=== PATIENT | male | born 1955 | race Caucasian/White ===

== ENCOUNTER 2017-05-22 19:02 | Observation (INO) | payer OTHER, MEDICARE ==
[~2017-05-22] VITALS: Ht 170.2 cm; Wt 111.0 kg
[~2017-05-22 19:02] MED LIST: ASPI-516 CHEW; ATOR80TA45 PO; CYMB30CA PO; FLUO20CA12 PO; FOLI400T PO; GABA600T PO; LISI10TA3 PO; METF500T PO; METO25TA3 PO; OMEP20TA93 PO; PERC5TAB12 PO
[2017-05-22] MEDS ORDERED: ENALAPRILAT 1.25 MG/ML VIAL IV PUSH PRN (19:30)
[2017-05-22] MEDS ORDERED: ASPIRIN 325 MG TAB PO ONE (19:30)
[2017-05-22] MEDS ORDERED: ATORVASTATIN 40 MG TAB PO SCH (21:00)
[2017-05-23 03:24] VITALS: BP 123/69; PULSE 90; RESP 16; TEMP 97.9; O2SAT 98
[2017-05-23] MEDS: SODIUM CHLOR 0.45% 1000 ML INJ 1,000 ML IV SCH ×3 (04:20→20:44)
[2017-05-23 08:00] VITALS: BP 132/72; PULSE 96; RESP 18; TEMP 96.9; O2SAT 96
[2017-05-23 12:00] VITALS: BP 125/67; PULSE 98; RESP 18; TEMP 96.7; O2SAT 97
--- NOTE | 2017-05-23 12:31 | ECHRPT ---
Indication: Cva/tia CONCLUSIONS The left ventricular function is normal with an estimated ejection fraction of 60-65% Mild concentric left ventricular hypertrophy. Normal left ventricular size. No regional wall motion abnormalities are present. Trace mitral valve regurgitation. There is trace tricuspid valve regurgitation The pulmonary valve is not well visualized. BP: / HR: Rhythm: MEASUREMENTS (Male / Female) Normal Values Technical Quality:Technically difficult study 2D ECHO LV Diastolic Diameter PLAX 4.4 cm 4.2 - 5.9 / 3.9 - 5.3 cm LV Systolic Diameter PLAX 3.2 cm IVS Diastolic Thickness 1.3 cm 0.6 - 1.0 / 0.6 - 0.9 cm LVPW Diastolic Thickness 1.1 cm 0.6 - 1.0 / 0.6 - 0.9 cm LV Relative Wall Thickness 0.5 RV Internal Dim ED PLAX 2.9 cm M-MODE Aortic Root Diameter MM 3.4 cm LA Systolic Diameter MM 3.3 cm LA Ao Ratio MM 1.0 AV Cusp Separation MM 2.1 cm DOPPLER LV E' Lateral Velocity 7.8 cm/s LV E' Septal Velocity 7.4 cm/s FINDINGS LEFT VENTRICLE The left ventricular systolic function is normal with an estimated ejection fraction in the range of 60-65%. Mild concentric left ventricular hypertrophy. Normal left ventricular size. No regional wall motion abnormalities are present. RIGHT VENTRICLE Normal right ventricular size and systolic function. LEFT ATRIUM The left atrial size is normal. RIGHT ATRIUM The right atrial size is normal. ATRIAL SEPTUM Normal atrial septal thickness without atrial level shunting by limited color doppler interrogation. AORTA The aortic root and proximal ascending aorta are normal in size on limited imaging. MITRAL VALVE Structurally normal mitral valve. Trace mitral valve regurgitation. AORTIC VALVE Trileaflet aortic valve. No aortic valve stenosis or regurgitation. TRICUSPID VALVE Structurally normal tricuspid valve. There is trace tricuspid valve regurgitation PULMONARY VALVE The pulmonary valve is not well visualized. VESSELS The inferior vena cava is normal in size. PERICARDIUM No pericardial effusion. Daniel Arnett MD (Electronically Signed) Final Date:23 May 2017 12:31
[2017-05-23] MEDS ORDERED: DEXTROSE 50% IN WATER 50 ML VIAL(D50) IV PUSH PRN (13:15)
[2017-05-23] MEDS ORDERED: SODIUM CHLORIDE 0.9% FLUSH 10 ML FLUSH IV FLUSH PRN (13:15)
[2017-05-23] MEDS ORDERED: GLUCAGON 1 MG/ML VIAL OTHER PRN (13:15)
[2017-05-23] MEDS ORDERED: ASPIRIN 81 MG CHEW TAB CHEW SCH (13:15)
[2017-05-23 13:34] LABS: HDL CHOLESTEROL 29.2 MG/DL (40.0-60.0)
[2017-05-23] MEDS ORDERED: ACETAMINOPHEN 325 MG TAB PO PRN (14:00)
[2017-05-23] MEDS ORDERED: TEMAZEPAM 15 MG CAP PO PRN (14:00)
[2017-05-23] MEDS ORDERED: CALCIUM CARBONATE 500 MG CHEWABLE TAB CHEW PRN (14:00)
[2017-05-23] MEDS ORDERED: DOCUSATE SODIUM 100 MG CAP PO PRN (14:00)
[2017-05-23] MEDS ORDERED: MAGNESIUM HYDROXIDE SUSP 30 ML CUP PO PRN (14:00)
[2017-05-23] MEDS ORDERED: ONDANSETRON HCL 4 MG/2 ML VIAL IV PUSH PRN (14:00)
--- NOTE | 2017-05-23 14:12 | HHI.HP ---
[facility] Admission Diagnosis Syncope, worsening weakness of the left upper lower extremity Diagnoses: (1) Syncope Diagnosis: Principal (2) History of CVA (cerebrovascular accident) Diagnosis: Secondary (3) Left-sided weakness Diagnosis: Principal Chief Complaint: Loss of consciousness with worsening left-sided weakness Travel History International Travel<30 Days: No Contact w/Intl Traveler <30 Da: No History of Present Illness 7 year-old male with known history of CVA with left-sided residual weakness, hypertension, hyperlipidemia, possible history of myocardial infarction, obstructive sleep apnea, gastroesophageal reflux, who presented to hospital because of a syncopal episode. Patient states that approximately 3 PM yesterday afternoon he was helping his do the dishes. 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 It was indicated that his son was behind him and caught him and lowered to the ground. Patient had an episode of loss of consciousness, without any head injury. Patient does not know how long he was out for. He denies any loss of bowel or bladder control, no tongue biting, he states that he was mildly confused but no significant postictal state. Patient indicates that since then he has been having worsening numbness in his left lower extremity where it is almost completely numb. He has had worsening pain in his left upper extremity. He also indicated that his son thought that he had worsened speech with possible slurred speech when he was more alert. Patient does have history of stroke with left-sided residuals. However patient states that the symptoms are worse than they were prior to his syncopal episode. After persuasion by his the patient reluctantly came to the hospital for evaluation. Patient had CT scan done of the brain that did not indicate any acute abnormality in the patient was recommended admission for further evaluation and management. Review of Systems Musculoskeletal: COMPLAINS OF: Back pain Neurologic: COMPLAINS OF: Localized weakness, Speech Problems Except as stated in HPI: all other systems reviewed are Neg Past Family Social History Past Medical History History of CVA with left-sided weakness Hypertension Hyperlipidemia Possible history of myocardial infarction Coronary artery disease History of symptomatic bradycardia requiring pacemaker Diabetes Gastroesophageal reflux Obstructive sleep apnea Past Surgical History Bilateral inguinal hernia repair Cholecystectomy Lumbar spine surgery Permanent pacemaker placement Cardiac catheterization Reported Medications Reported Meds & Active Scripts Active Reported Folic Acid 0.4 Mg Tab 1 Mg PO DAILY Lisinopril 10 Mg Tab 10 Mg PO DAILY Aspirin 81 Mg Chew 81 Mg CHEW DAILY Fluoxetine (Fluoxetine HCl) 20 Mg Capsule 20 Mg PO DAILY Metoprolol Tartrate 25 Mg Tab 25 Mg PO BID Cymbalta DR (Duloxetine HCl) 30 Mg Capdr 30 Mg PO DAILY Omeprazole 20 Mg Tab 20 Mg PO DAILY Metformin (Metformin HCl) 500 Mg Tab 500 Mg PO BIDPC With meals Atorvastatin (Atorvastatin Calcium) 80 Mg Tab 80 Mg PO HS Gabapentin 600 Mg Tab 600 Mg PO TID Percocet (Oxycodone-Acetaminophen) 5-325 mg Tab 1 Tab PO TID PRN Allergies: Coded Allergies: MRI PRECAUTION (Verified Allergy, Severe, 04/30/17) oseltamivir (Verified Allergy, Unknown, 05/22/17) polyethylene glycol (Verified Allergy, Unknown, 05/22/17) polyethylene glycol 3350 (Verified Allergy, Unknown, 05/22/17) potassium chloride (Verified Allergy, Unknown, 05/22/17) sodium (Verified Allergy, Unknown, 05/22/17) sodium bicarbonate (Verified Allergy, Unknown, 05/22/17) sodium chloride (Verified Allergy, Unknown, 05/22/17) sodium sulfate (Verified Allergy, Unknown, 05/22/17) Uncoded Allergies: BARIUM (Allergy, Unknown, 05/22/17) Family History Reviewed and patient does not know his family history Social History Patient does continues smoke one pack a cigarettes a day since he was 15 years old. Does use alcohol rarely. Denies any illicit drugs Physical Exam Vital Signs Vital Signs Date Time Temp Pulse Resp B/P (MAP) Pulse Ox O2 Delivery O2 Flow Rate FiO2 05/23/17 12:00 96.7 98 18 125/67 (86) 97 05/23/17 08:00 96.9 96 18 132/72 (92) 96 05/23/17 03:24 97.9 90 16 123/69 (87) 98 Physical Exam GENERAL: Well-developed, well-nourished, in no acute distress. alert and orientated HEENT: Head is normocephalic without any lesions or masses noted. Facial features are symmetric. Eyes: Pupils equal round reactive to light. Extraocular muscles are intact. Conjunctivae were clear. Oropharyngeal: Pharynx without any erythema edema. Tongue is midline without deviation. Buccal mucosa is moist without any masses or lesions NECK: Supple without any masses. Trachea midline no deviation. No JVD, no bruits are appreciated CARDIAC: Regular rhythm, regular rate. S1/S2 are heard. No murmurs gallops or rubs. LUNGS: Clear to auscultation bilaterally. No wheeze, rhonchi or rales. No use of accessory muscles on inspiration or expiration. ABDOMEN: Soft, nontender. Nondistended. Bowel sounds heard in all 4 quadrants. No organomegaly or masses. Negative rebound, negative guarding EXTREMITIES: No edema, pulses are equal bilaterally. No cyanosis or clubbing NEUROLOGY: Mood and affect appear appropriate. Cranial nerves II through XII grossly intact. Patient with 3/5 muscle strength in the left upper extremity, patient states he cannot lift his left lower extremity, however when I checked his plantar reflex he is able to lift his leg up off the bed spontaneously. Laboratory Laboratory Tests Test 05/22/17 18:04 05/23/17 02:05 Triglycerides Level 228 Cholesterol Level 141 LDL Cholesterol 66 HDL Cholesterol 29.2 Cholesterol/HDL Ratio 4.82 Caprini VTE Risk Assessment Caprini VTE Risk Assessment: Mod/High Risk (score >= 2) Caprini Risk Assessment Model Point Value = 1 Point Value = 2 Point Value = 3 Point Value = 5 Age 41-60 Minor surgery BMI > 25 kg/m2 Swollen legs Varicose veins or History of unexplained or recurrent spontaneous Oral contraceptives or hormone replacement Sepsis (< 1 month) Serious lung disease, including pneumonia (< 1 month) Abnormal pulmonary function Acute myocardial infarction Congestive heart failure (< 1 month) History of inflammatory bowel disease Medical patient at bed rest Age 61-74 Arthroscopic surgery Major open surgery (> 45 min) Laparoscopic surgery (> 45 min) Malignancy Confined to bed (> 72 hours) Immobilizing plaster cast Central venous access Age >= 75 History of VTE Family history of VTE Factor V Leiden Prothrombin [id number] Lupus anticoagulant Anticardiolipin antibodies Elevated serum homocysteine Heparin-induced thrombocytopenia Other congenital or acquired thrombophilia Stroke (< 1 month) Elective arthroplasty Hip, pelvis, or leg fracture Acute spinal cord injury (< 1 month) Prophylaxis Regimen Total Risk Factor Score Risk Level Prophylaxis Regimen 0-1 Low Early ambulation 2 Moderate Order ONE of the following: *Sequential Compression Device (SCD) *Heparin 5000 units SQ BID 3-4 Higher Order ONE of the following medications: *Heparin 5000 units SQ TID *Enoxaparin/Lovenox 40 mg SQ daily (WT < 150 kg, CrCl > 30 mL/min) *Enoxaparin/Lovenox 30 mg SQ daily (WT < 150 kg, CrCl > 10-29 mL/min) *Enoxaparin/Lovenox 30 mg SQ BID (WT < 150 kg, CrCl > 30 mL/min) AND/OR *Sequential Compression Device (SCD) 5 or more Highest Order ONE of the following medications: *Heparin 5000 units SQ TID (Preferred with Epidurals) *Enoxaparin/Lovenox 40 mg SQ daily (WT < 150 kg, CrCl > 30 mL/min) *Enoxaparin/Lovenox 30 mg SQ daily (WT < 150 kg, CrCl > 10-29 mL/min) *Enoxaparin/Lovenox 30 mg SQ BID (WT < 150 kg, CrCl > 30 mL/min) AND *Sequential Compression Device (SCD) Assessment and Plan Assessment and Plan Acute syncopal episode worsening left-sided weakness and numbness in a patient with recurrent CVA/TIA Patient with increased risk factors for recurrent stroke, will need to do full neurological workup to evaluate CT scan initially is unremarkable. Patient has had MRI precautions will need to repeat CT tomorrow to evaluate for evolving CVA We'll check echocardiogram, carotid ultrasound, EEG, orthostatic vitals, CTA of the brain Further lab studies to include B12, folate, TSH, RPR, sedimentation rate, lipid panel Will increase to full dose aspirin 325 mg daily and add Plavix 75 mg daily Obtain PT/OT/ST evaluations Interrogate pacemaker Consult neurology for further recommendations Hypertension, hyperlipidemia, coronary artery disease, history of symptomatic bradycardia status post pacemaker placement Continue home medications Diabetes Accu-Cheks with sliding scale insulin check hemoglobin A1c Diabetic diet Chronic back pain Continue home pain medication Chronic tobacco use Patient counseled on cessation DVT prevention sequential compression devices Physician Certification 2 Midnight Certification Type: Admission for Inpatient Services Order for Inpatient Services The services are ordered in accordance with Medicare regulations or non- Medicare payer requirements, as applicable. In the case of services not specified as inpatient-only, they are appropriately provided as inpatient services in accordance with the 2-midnight benchmark. Estimated LOS (days): 2 days is the estimated time the patient will need to remain in the hospital, assuming treatment plan goals are met and no additional complications. Post-Hospital Plan: Not yet determined Problem Qualifiers (1) Syncope: Qualified Codes: R55 - Syncope and collapse Josh Santamaria May 23, 2017 14:12
[2017-05-23] MEDS: CLOPIDOGREL 75 MG TAB PO SCH (14:16)
[2017-05-23] MEDS: oxyCODONE/ACETAMINOPHEN 5 MG/325 MG TAB PO PRN ×2 (14:17→20:42)
[2017-05-23] MEDS: ASPIRIN EC 325 MG TABEC PO SCH (14:17)
[2017-05-23 16:00] VITALS: BP 122/71; PULSE 108; RESP 18; TEMP 97.4; O2SAT 95
[2017-05-23] MEDS ORDERED: IOHEXOL 350 MG/ML 10 ML VIAL (for RAD DIAG) IVCONTRAST ONE (16:01)
--- NOTE | 2017-05-23 16:31 | RADRPT ---
EXAM DATE/TIME: 05/23/2017 14:58 [facility] COMPARISON: No previous studies available for comparison. INDICATIONS : Cerebrovascular accident. MEDICAL HISTORY : Dementia. Myocardial infarction. Chronic obstructive pulmonary disease. SURGICAL HISTORY : Spinal surgery. Pacemaker. Cholecystectomy. Hernia repair. ENCOUNTER: Subsequent ACUITY: 1 day PAIN SCORE: 10/10 LOCATION: Bilateral neck PEAK SYSTOLIC VELOCITIES (cm/sec): ICA/CCA RATIO: Right: 0.7 Left: 0.9 ICA: Right: 82 Left: 85 CCA: Right: 114 Left: 98 ECA: Right: 167 Left: 84 VERTEBRAL: Right: 72 antegrade Left: 72 antegrade Elevated flow velocities and ICA/CCA ratios have been found to correlate with increased degrees of vessel stenosis, calculated as percentage of diameter relative to a normal segment of distal ICA/CCA FINDINGS: RIGHT CAROTID: No significant stenosis is visualized. There is mild calcified plaque in the carotid bulb. The wavef orms are within normal limits. LEFT CAROTID: No significant stenosis is visualized. There is mild noncalcified plaque in the coronal. The wavefor ms are within normal limits. VERTEBRAL ARTERIES: Antegrade flow is seen in both vertebral arteries. MISCELLANEOUS: None. CONCLUSION: 1. Mild atherosclerotic disease within the internal carotid arteries bilaterally. However, no signifi cant stenosis is present within either internal carotid artery (less than 50% stenosis). 2. There is antegrade flow within both vertebral arteries. Rajesh Campbell MD on May 23, 2017 at 16:27 Board Certified Radiologist. This report was verified electronically.
[2017-05-23] MEDS: INSULIN ASPART SUPPLEMENTAL SCALE SQ SCH ×2 (17:00→21:17)
--- NOTE | 2017-05-23 17:34 | RADRPT ---
EXAM DATE/TIME: 05/23/2017 15:49 [facility] COMPARISON: No previous studies available for comparison. INDICATIONS : Syncopal episode yesterday. Evaluate for cerebrovascular accident. IV CONTRAST: 75 cc Omnipaque 350 (iohexol) IV RADIATION DOSE: 41.71 CTDIvol (mGy) MEDICAL HISTORY : Cerebrovascular disease. Myocardial infarction. Chronic obstructive pulmonary disease.Diabetes. SURGICAL HISTORY : Pacemaker. Cholecystectomy. ENCOUNTER: Initial ACUITY: 1 day PAIN SCALE: 9/10 LOCATION: cranial TECHNIQUE: Volumetric scanning was performed using a multi-row detector CT scanner. The data was post processed with a variety of visualization algorithms including full volume maximum intensity projection, multi -planar sliding thin slab reformation, curved planar reformation, and surface rendering techniques. Using automated exposure control and adjustment of the mA and/or kV according to patient size, radiat ion dose was kept as low as reasonably achievable to obtain optimal diagnostic quality images. DICO M format image data is available electronically for review and comparison. FINDINGS: Anterior circulation: Distal intracranial internal carotid arteries are patent with flow extending to the middle and anteri or cerebral arteries. There is no evidence for aneurysm, vessel truncation or stenosis, and no eviden ce for vascular malformation. Posterior circulation: Symmetric distal vertebral arteries with flow extending to basilar artery. Patent posterior communic ating arteries. origin of the right CHAPERONE. There is no evidence for aneurysm, vessel truncation o r stenosis, and no evidence for vascular malformation. CONCLUSION: 1. Unremarkable head CTA examination. Specifically, no evidence for large vessel occlusion or aneurys mSneha Hollis MD on May 23, 2017 at 17:27 Board Certified Radiologist. This report was verified electronically.
[2017-05-23] MEDS ORDERED: GABAPENTIN 300 MG CAP PO SCH (18:00)
[2017-05-23 20:00] VITALS: BP 106/65; PULSE 95; RESP 18; TEMP 97.1; O2SAT 97
[2017-05-23] MEDS: METOPROLOL TARTRATE 25 MG TAB PO SCH (20:42)
[2017-05-23] MEDS: SODIUM CHLORIDE 0.9% FLUSH 10 ML FLUSH IV FLUSH SCH (20:42)
[2017-05-23] MEDS ORDERED: ATORVASTATIN 40 MG TAB PO SCH (21:00)
--- NOTE | 2017-05-23 22:02 | MB ---
cc: ISRAEL RHODES MD DATE OF CONSULTATION 05/23/17 HISTORY OF PRESENT ILLNESS A 61-year-old right-handed man with a history of hypertension, diabetes, hypercholesterolemia, COPD, low back pain, low back surgery, pacemaker. [facility] to [facility]. He tells me he had a stroke in 2010, left-sided weakness since that time. He uses a cane. He takes a baby aspirin a day. 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 The next thing he knows he was in the chair, so it sounds like he may have passed out briefly. He feels like his left arm is tingling on it and was somewhat weaker than it had been since prior after the stroke. He has a lot of low back pain now. SOCIAL HISTORY He is a smoker and I have asked him to quit. He is not a drinker, lives with his . FAMILY HISTORY Positive for cancer in both his son and his . Negative for seizure or stroke. Evidently, he has had numerous syncopal episodes related to hypoglycemia in the past. He has never woken up, wet the bed or bit his tongue. No odd smells, taste or victor hugo vu. He did not wet himself or bite his tongue this time. ALLERGIES POLYETHYLENE GLYCOL OSELTAMIVIR BARIUM MEDICATIONS 1. Folic acid. 2. Lisinopril 3. Aspirin 81 4. Fluoxetine 5. Metoprolol 6. Cymbalta 30 mg a day. 7. Omeprazole. 8. Metformin. 9. Atorvastatin 10. Gabapentin 600 t.i.d. 11. Percocet p.r.n. He was on Morphine at one-time. He says he had them take him off. NEUROLOGIC EXAMINATION Afebrile, 108, 18, 122/71. NECK: There were no carotid bruits. HEART: Regular rhythm. I did not detect a murmur. He is significantly obese. Pupils are equal. Visual mancera are full. Extraocular movements intact without nystagmus. Face symmetric with normal sensation. Tongue was midline. There was no drift. He had normal strength in right upper and lower extremities. In the left upper extremity, he has some giveaway weakness but best testing is about a 4+ to 5-/5. Fast fingers movements are a little bit slower on the left than the right but his effort is not so great. Left iliopsoas and tibialis anterior with normal best testing. Toes are downgoing bilaterally. DTRs are trace to absent throughout. Pinprick was diminished on the left leg compared to the right, but intact on the left arm compared to the right and intact on the face bilaterally. He is not ataxic on [id number]. Speech is fluent. He is not aphasic. LABORATORY DATA CBC was unremarkable. Sed rate 47. RPR has been negative in the past. Antiphospholipid antibody has been negative in the past. Urine drug screen is negative in 2011. UA showed 1000 glucose otherwise negative. Coag screen was normal back in 2011. Troponin is negative. LDL cholesterol 66, folate, B12, thyroid all normal. BMP is normal except for glucose of 183. IMAGING STUDIES CTA scan of the brain was normal. Carotid ultrasound negative. CTA of the head unremarkable, no occlusions, CT of the brain as noted was normal and I reviewed those films. Neck CTA done in 2011 which was normal. EEG done in 2011 normal. His echocardiogram here was normal. PAST MEDICAL HISTORY Possible seizure in the past with jerking activity. Some history of seizures, possibly when Dr. Warner saw him back in 2010, although the patient to me denied any seizures. IMPRESSION I think he looks overall well neurologically. He has some residual left-sided weakness, but I think it is unlikely he had a new stroke here. He is mainly complaining of sudden onset of back pain and now back pain at this time. We could increase his gabapentin or increase his Cymbalta, certainly he could take 30 b.i.d. of the Cymbalta and go up to 60 b.i.d. if it would be okay and considered switching him off his other antidepressant. We can double his gabapentin to 1200 t.i.d. I would check some orthostatics on him. We can check an EEG. I would recommend having cardiology see him for the syncope and to also interrogate his pacemaker and see if there is any major arrhythmia there. Start him on Plavix and in three days, I would stop the aspirin. Plavix has been started here and I think he would be okay for discharge when cleared by cardiology unless there is some A fib. found on his pacemaker. I note he has been in sinus rhythm here so far. Follow up his EEGx. MD SILAS Irby/ /7:14 PM /9:37 PM
[2017-05-23 22:14] LABS: HEMOGLOBIN A1a 1.2 %; HEMOGLOBIN A1b 1.8 %; HEMOGLOBIN Ao 78.2 %; HEMOGLOBIN F 1.7 %; HEMOGLOBIN LA1C 3.1 %; HEMOGLOBIN P3 6.5 %
[2017-05-23 23:00] VITALS: PULSE 85
[2017-05-24] VITALS: BP 124/74; PULSE 82; RESP 18; TEMP 96.6; O2SAT 97
[2017-05-24 04:00] VITALS: BP 133/77; PULSE 81; RESP 18; TEMP 96.3; O2SAT 96
--- NOTE | 2017-05-24 06:38 | MB ---
cc: RYAN ISAAC M.D. DATE OF CONSULTATION May 24, 2017 HISTORY OF PRESENT ILLNESS The patient is a pleasant 61-year-old white man I am seeing for syncope. I have reviewed records and have spoken with the patient. The patient is followed through the [facility]. He has a [employer] pacemaker per his history which he thinks was for a slow heart rate. He denies any definite history of coronary disease to me. He does have residual left-sided weakness from prior CVA. His past medical history includes hypertension, hyperlipidemia and sleep apnea. The patient was admitted because of syncope. 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 His son caught him and lowered him to the ground. Apparently it was unclear whether this was truly a syncopal episode or loss of balance. The patient has moderate stable dyspnea on exertion but no chest pain, palpitations or other cardiac complaints. PAST MEDICAL HISTORY 1. [employer] pacemaker. 2. Hypertension. 3. Hyperlipidemia. 4. CVA with left-sided weakness. 5. Diabetes. 6. Sleep apnea. 7. GE reflux disease. PAST SURGICAL HISTORY 1. Bilateral inguinal hernia repair. 2. Cholecystectomy. 3. Lumbar spine surgery. ALLERGIES MRI PRECAUTIONS. POLYETHYLENE GLYCOL. BARIUM. SOCIAL HISTORY He is and smokes one pack per day and does not drink. FAMILY HISTORY Unremarkable. REVIEW OF SYSTEMS Only remarkable for occasional joint pain along with his left-sided weakness and dyspnea. His echocardiogram showed normal LV function with left ventricular hypertrophy and trace mitral and tricuspid regurgitation. EKG shows sinus rhythm and is normal. On telemetry he was in sinus rhythm but did have a four-beat ventricular run. IMAGING STUDIES Head CT negative. CT angiogram unremarkable. Carotid ultrasound with mild disease. Chest x-ray was not done. MEDICATION LIST Reviewed. PHYSICAL EXAMINATION GENERAL: On exam he is alert and oriented x3 but only a fair historian. He is overweight. Afebrile. VITAL SIGNS: Stable. HEENT: There is no xanthelasma and oral pharyngeal mucosa normal. CHEST: With decreased breath sounds but clear. JVD normal. S1-S2, no murmurs or gallops. ABDOMEN: Obese but benign. EXTREMITIES: No cyanosis, clubbing or edema. Pulses deep with 1+ throughout and without bruits. NEUROLOGIC: He is not ambulated. PROBLEMS 1. Possible syncope - This is unclear as it could have been due to his weakness and imbalance when he stood up. 2. Prior pacemaker placement. 3. Four-beat wide complex run on telemetry. 4. Hypertension. 5. Diabetes. 6. Hyperlipidemia. RECOMMENDATIONS 1. No driving or heavy machinery at the present time. 2. I have spoken to my office who will call the [employer] rep and have the pacemaker interrogated. We would try to correlate if he had an arrhythmia at that time. 3. Low cholesterol/salt/diabetic diet with weight loss and continuation of present medical regimen. 4. Will order a pharmacologic SPECT nuclear particularly because of the four-beat wide complex run. If there is no definite correlation with arrhythmia on pacemaker check and there is no significant ischemia, then we would [facility] particularly given his preserved [facility] function. We will follow. ADDENDUM I have reviewed some outside records. The patient had a [employer] pacemaker in 2008 for episodes of complete heart block. He also had some supraventricular tachycardia. The patient underwent cardiac catheterization 08/24 in [facility]. The left ventricular function was normal and he had normal, patent coronary arteries. The last stress nuclear that I have seen was 2010 which showed some anterior ischemia. ADDENDUM Laboratories which were done in [place], CBC normal. Sed rate elevated at 47. PT/PTT normal. Potassium 4.4, glucose 183, creatinine 0.8, troponins negative. Hemoglobin A1c elevated at 8.5, LDL 66. TSH normal. RECOMMENDATIONS Tobacco abstinence. MD JOHN RamirezG/SSB /6:16 AM /8:22 AM
[2017-05-24] MEDS: INSULIN ASPART SUPPLEMENTAL SCALE SQ SCH ×2 (07:48→12:00)
[2017-05-24] MEDS: oxyCODONE/ACETAMINOPHEN 5 MG/325 MG TAB PO PRN (07:50)
[2017-05-24 07:59] VITALS: BP_SYST 103; BP_SYST 114; BP_SYST 139; BP_DIAS 68; BP_DIAS 70; BP_DIAS 90; PULSE 74; TEMP 96; O2SAT 98
[2017-05-24] MEDS: SODIUM CHLOR 0.45% 1000 ML INJ 1,000 ML IV SCH (08:59)
[2017-05-24] MEDS: SODIUM CHLORIDE 0.9% FLUSH 10 ML FLUSH IV FLUSH SCH (09:00)
[2017-05-24] MEDS: ASPIRIN EC 325 MG TABEC PO SCH (09:00)
[2017-05-24] MEDS ORDERED: FLUoxetine HCL 20 MG CAP PO SCH (09:00)
[2017-05-24] MEDS ORDERED: LISINOPRIL 10 MG TAB PO SCH (09:00)
[2017-05-24] MEDS ORDERED: PANTOPRAZOLE SOD 20 MG DELAYED RELEASE TAB PO SCH (09:00)
[2017-05-24] MEDS ORDERED: DULoxetine HCl DR 30 MG CAP PO SCH (09:00)
[2017-05-24] MEDS: CLOPIDOGREL 75 MG TAB PO SCH (09:01)
[2017-05-24] MEDS: GABAPENTIN 300 MG CAP PO SCH ×2 (09:01→13:26)
[2017-05-24] MEDS: METOPROLOL TARTRATE 25 MG TAB PO SCH (09:01)
[2017-05-24 09:03] VITALS: RESP 18
--- NOTE | 2017-05-24 09:10 | HHI.PR ---
Subjective Remarks Patient seen and examined today for follow-up on syncope and left-sided weakness. Patient denies any new complaints. No acute events overnight. Still awaiting workup be completed. Patient vital signs are stable, afebrile Objective Vital Signs Date Time Temp Pulse Resp B/P (MAP) Pulse Ox O2 Delivery O2 Flow Rate FiO2 05/24/17 07:59 96.0 74 114/68 (83) 98 103/70 (81) 139/90 (106) 05/24/17 04:00 96.3 81 18 133/77 (95) 96 05/24/17 00:00 96.6 82 18 124/74 (91) 97 05/23/17 23:00 85 05/23/17 20:00 97.1 95 18 106/65 (79) 97 05/23/17 16:08 18 05/23/17 16:00 97.4 108 18 122/71 (88) 95 05/23/17 12:00 96.7 98 18 125/67 (86) 97 I/O 05/23/17 05/23/17 05/23/17 05/24/17 05/24/17 05/24/17 07:00 15:00 23:00 07:00 15:00 23:00 Intake Total 900 ml 1395 ml Output Total 1650 ml Balance 900 ml -255 ml Intake Oral 720 ml IV Total 900 ml 675 ml Output Urine Total 1650 ml # Voids 0 2 # Bowel Movements 0 1 Imaging Last Impressions Head CTA 05/23/17 0000 Signed Impressions: Service Date/Time: May 15:49 - CONCLUSION: 1. Unremarkable head CTA examination. Specifically, no evidence for large vessel occlusion or aneurysm. Demetrius Hollis MD Carotid Artery Ultrasound 05/23/17 0000 Signed Impressions: Service Date/Time: May 14:58 - CONCLUSION: 1. Mild atherosclerotic disease within the internal carotid arteries bilaterally. However, no significant stenosis is present within either internal carotid artery (less than 50%% stenosis). 2. There is antegrade flow within both vertebral arteries. Rajesh Campbell MD Procedures Echocardiogram The left ventricular function is normal with an estimated ejection fraction of 60-65% Mild concentric left ventricular hypertrophy. Normal left ventricular size. No regional wall motion abnormalities are present. Trace mitral valve regurgitation. There is trace tricuspid valve regurgitation The pulmonary valve is not well visualized. Other Results Laboratory Tests Test 05/23/17 14:00 Erythrocyte Sedimentation Rate 47 mm/hr Vitamin B12 Level 397 PG/ML Folate GREATER THAN 20.0 NG/ML Thyroid Stimulating Hormone 3rd Gen 0.910 uIU/ML Objective Remarks GENERAL: Well-developed, well-nourished, in no acute distress. alert and orientated HEENT: Head is normocephalic without any lesions or masses noted. Facial features are symmetric. Eyes: Pupils equal round reactive to light. Extraocular muscles are intact. Conjunctivae were clear. Oropharyngeal: Pharynx without any erythema edema. Tongue is midline without deviation. Buccal mucosa is moist without any masses or lesions NECK: Supple without any masses. Trachea midline no deviation. No JVD, no bruits are appreciated CARDIAC: Regular rhythm, regular rate. S1/S2 are heard. No murmurs gallops or rubs. LUNGS: Clear to auscultation bilaterally. No wheeze, rhonchi or rales. No use of accessory muscles on inspiration or expiration. ABDOMEN: Soft, nontender. Nondistended. Bowel sounds heard in all 4 quadrants. No organomegaly or masses. Negative rebound, negative guarding EXTREMITIES: No edema, pulses are equal bilaterally. No cyanosis or clubbing NEUROLOGY: Mood and affect appear appropriate. Cranial nerves II through XII grossly intact. Patient with 3/5 muscle strength in the left upper extremity, patient states he cannot lift his left lower extremity, however when I checked his plantar reflex he is able to lift his leg up off the bed spontaneously. A/P Assessment and Plan Acute syncopal episode worsening left-sided weakness and numbness in a patient with recurrent CVA/TIA Patient with increased risk factors for recurrent stroke, will need to do full neurological workup to evaluate CT scan initially is unremarkable. Unable to perform MRI due to patient having pacemaker CTA of the brain did not indicate any acute abnormality Echocardiogram indicates ejection fraction 60-65%, normal left ventricular function no obvious source for TIA/CVA Carotid ultrasound indicates mild atherosclerotic disease within internal carotid bilaterally. No significant stenosis present Orthostatic vitals were unremarkable EEG, survey technician indicated there is no abnormalities seen Sedimentation rate was elevated, however Additional laboratory studies were unremarkable PT/OT/ST evaluations have been performed. PT indicates patient should require home with home health PT, occupational therapy recommends OT at rehabilitation Discontinue aspirin 325 mg daily and Plavix 75 mg daily Neurology evaluated the patient and made recommendations for his back pain. Agreed with EEG and Plavix. They also recommended cardiology consultation for syncope evaluation Cardiology evaluated the patient and recommended myocardial perfusion study, agreed with pacemaker interrogation and orthostatic vitals Pacemaker interrogation did indicate episodes of atrial fibrillation, the last episode was 5 months ago and not associated with the patient's recent syncope Results of interrogation was discussed with neurology and cardiology who indicated that patient needs to have full anticoagulation Myocardial perfusion study was unremarkable for any ischemia, low risk Paroxysmal atrial fibrillation CHADS score of 4 Patient will require full anticoagulation, we'll start on Xarelto 20 mg daily for non-valvular atrial fibrillation and stroke prevention Hypertension, hyperlipidemia, coronary artery disease, history of symptomatic bradycardia status post pacemaker placement Continue home medications Lipid panel performed with LDL 66, continue current dose of statin Diabetes, uncontrolled Accu-Cheks with sliding scale insulin Hemoglobin A1c 8.5 Diabetic diet Chronic back pain Continue home pain medication Chronic tobacco use Patient counseled on cessation DVT prevention sequential compression devices Discharge Planning Discharge planning today if further testing can be completed. Case management consulted for home health care Activity: Ad ruben. Diet: Diabetic diet Medications per medication reconciliation Follow-up primary medical doctor one week, neurologist in 2 weeks Josh Santamaria May 24, 2017 09:09
--- NOTE | 2017-05-24 09:11 | HHI.FF ---
Face to Face Verification Diagnosis: (1) History of CVA (cerebrovascular accident) (2) Left-sided weakness (3) Syncope Physical Therapy Order: Evaluate and Treat, Improve ambulation, Strength and gait training Occupational Therapy Order: Evaluate and Treat, Improve ADL, Gross motor coordination, Fine motor coordination Home Health Nursing Order: Signs/symptoms of disease process Nursing assessment with vital signs I have seen patient Logan Dacosta on 05/24/17. My clinical findings support the need for the requested home health care services because: Deconditioned w/ increased weakness High risk of falls I certify that my clinical findings support that this patient is homebound because: Unsteady gait/balance Josh Santamaria May 24, 2017 09:11
[2017-05-24] MEDS ORDERED: REGADENOSON INJ 0.4 MG/5 ML SYR IV ONE (11:11)
[2017-05-24 12:00] VITALS: BP 133/83; PULSE 77; TEMP 96.1; O2SAT 96
--- NOTE | 2017-05-24 12:45 | RADRPT ---
EXAM DATE/TIME: 05/24/2017 10:55 [facility] COMPARISON: No previous studies available for comparison. INDICATIONS : Coronary artery disease. DOSE: 30.3 mCi Tc99m Myoview at stress. 10.2 mCi Tc99m Myoview at rest. 0.4 mg Lexiscan STRESS SYMPTOMS: None noted. EJECTION FRACTION: 59% MEDICAL HISTORY : Hypertension. Diabetes mellitus type 2. Smoker. SURGICAL HISTORY : Pacemaker. ENCOUNTER: Initial ACUITY: 1 day PAIN SCALE: 2/10 LOCATION: Bilateral chest TECHNIQUE: The patient underwent pharmacologic stress with infusion of prescribed dose. Continuous ECG tracing was monitored during stress. Gated SPECT imaging was performed after stress and conventional SPECT i maging was performed at rest. The examination was performed on a SPECT/CT scanner, both attenuation and non-corrected datasets were reviewed. FINDINGS: DISTRIBUTION: The maximum perfused segment at stress is in the anteroseptal wall. PERFUSION STUDY: Max defect inferior wall. No reversible perfusion defect. GATED STUDY: There is intact wall motion and thickening without hypokinetic or dyskinetic segments. CONCLUSION: 1. No reversible perfusion defect to suggest ischemia. 2. Normal ejection fraction. RISK CATEGORY: Low (<1% Annual Mortality Rate) Daniel Lowery MD on May 24, 2017 at 12:42 Board Certified Radiologist. This report was verified electronically.
[2017-05-24] MEDS ORDERED: RIVAROXABAN 20 MG TAB PO SCH (13:00)
[2017-05-24] MEDS ORDERED: NEUR300C PO (13:08)
[2017-05-24] MEDS ORDERED: XARE20TA PO (13:08)
--- NOTE | 2017-05-24 13:09 | HHI.DCPOC ---
Discharge Care Plan Diagnosis: (1) Paroxysmal atrial fibrillation (2) Syncope (3) Left-sided weakness Goals to Promote Your Health * To prevent worsening of your condition and complications * To maintain your health at the optimal level Directions to Meet Your Goals Take your medications as prescribed Follow your dietary instruction Follow activity as directed Keep your appointments as scheduled Take your immunizations and boosters as scheduled If your symptoms worsen call your PCP, if no PCP go to Urgent Care Center or Emergency Room Smoking is Dangerous to Your Health. Avoid second hand smoke Call the 24-hour hour crisis hotline for domestic abuse at Josh Santamaria May 24, 2017 13:09
--- NOTE | 2017-05-25 06:22 | MG ---
cc: COLTEN CANNON MD Lab No: Date: 05/24/2017 Age:61 Sex: M Race: DATE OF 1955 REFERRING PHYSICIAN Rosalio PHAM MEDICAL HISTORY Stroke, dementia, migraine, numbness, pacemaker, cardiac cath, COPD, dyspnea, gastroesophageal reflux disease, snoring, back pain, diabetes, depression, anxiety, twenty years ago tried to hang self, alcohol use, tobacco use. Patient presented with sudden onset of severe back pain and fell against son sitting in a chair. MEDICATIONS 1. Lipitor. 2. Lopressor 3. Aspirin 4. Percocet DESCRIPTION The background is 8-9 Hz, alpha located posteriorly with posterior anterior gradient. During the EEG record there was a drop out of the background rhythm to a theta range, drop out to the alpha background to be replaced by theta with appearance of sleep spindles and K complexes and transitioned to stage II sleep. Hyperventilation was omitted. Photic stimulation did not elicit driving response. There were no electrographic seizures or epileptiform discharges noted during the recording. INTERPRETATION This is a normal awake and sleep EEG. There were no electrographic seizures or epileptiform discharges during the recording. There were muscle and movement artifact. There were no electrographic seizures or epileptiform discharges during the recording. Clinical correlation is recommended. Colten Cannon MD [facility]/ /9:53 PM /1:07 PM PRATIMA
== END 2017-05-24 15:03 | disposition home or self-care (01) ==
LOC: PHEDDLT 19:02 → PH3A 19:25 → PHEDDLT 05-23 03:05 → UNDOADMIN 05-23 03:15 → PH3A 05-23 03:15 → UNDODISIN 05-24 15:03
PROVIDERS: ADMIT Hospitalist; ATTEND Hospitalist
DX: R55 Syncope and collapse (principal); E11.65 Type 2 diabetes mellitus with hyperglycemia; I11.9 Hypertensive heart disease without heart failure; I69.354 Hemiplegia and hemiparesis following cerebral infarction affecting left non-dominant side; E78.5 Hyperlipidemia, unspecified; I25.2 Old myocardial infarction; K21.9 Gastro-esophageal reflux disease without esophagitis; I48.0 Paroxysmal atrial fibrillation; I65.23 Occlusion and stenosis of bilateral carotid arteries; I25.10 Atherosclerotic heart disease of native coronary artery without angina pectoris; G47.33 Obstructive sleep apnea (adult) (pediatric); G89.29 Other chronic pain; M54.5 Low back pain; R06.00 Dyspnea, unspecified; I49.9 Cardiac arrhythmia, unspecified; G43.909 Migraine, unspecified, not intractable, without status migrainosus; F17.210 Nicotine dependence, cigarettes, uncomplicated; Z79.84 Long term (current) use of oral hypoglycemic drugs; Z95.0 Presence of cardiac pacemaker
CPT/HCPCS: 70450; 70496; 78452; 80048; 80061; 82607; 82746; 82948; 83036; 84443; 84484; 85025; 85610; 85652; 85730; 86592; 92610; 93005; 93017; 93306; 93880; 95819; 96360; 96361; 96372; 97110; 97162; 97167; 97530; 99285; A9502; G0378; G8987; G8988; G8996; G8997; G8998; J1815; J2785; Q9967

== ENCOUNTER 2017-06-13 05:30 | Observation (INO) | payer MEDICARE, OTHER ==
[~2017-06-13] VITALS: Ht 170.2 cm; Wt 113.6 kg
[2017-06-13] VITALS (12 sets, daily range): BP systolic 115–167; BP diastolic 70–75; PULSE 82–113; RESP 17–23; TEMP 96.9–98; O2SAT 96–98
[~2017-06-13 05:30] MED LIST changes: +ACETAMINOPHEN 325 MG TAB PO PRN; -ASPI-516 CHEW; +BISACODYL 10 MG SUPP RECTAL PRN; +DEXTROSE 50% IN WATER 50 ML VIAL(D50) IV PUSH PRN; -GABA600T PO; +GLUCAGON 1 MG/ML VIAL OTHER PRN; +HEPARIN SODIUM - SQ 10,000 UNITS/ML VIAL SQ SCH; +NALOXONE HCL 0.4 MG/ML AMP IV PUSH PRN; +NEUR300C PO; +ONDANSETRON HCL 4 MG/2 ML VIAL IVP PRN; -PERC5TAB12 PO; +RESP: ALBUTEROL 2.5 MG/IPRATROPIUM 0.5 MG NEB (PRN) NEB; +SENNOSIDES 8.6 MG TAB PO PRN; +SODIUM CHLORIDE 0.9% FLUSH 10 ML FLUSH IV FLUSH PRN; +XARE20TA PO
[2017-06-13] MEDS: SODIUM CHLOR 0.9% 1000 ML INJ 1,000 ML IV SCH ×4 (06:16→22:01)
[2017-06-13] MEDS: cefTRIAXone INJ 1,000 MG in SODIUM CHLORIDE 0.9% INJ 100 ML IV SCH (06:19)
[2017-06-13] MEDS: INSULIN ASPART SUPPLEMENTAL SCALE SQ SCH ×4 (08:00→21:00)
[2017-06-13] MEDS: SODIUM CHLORIDE 0.9% FLUSH 10 ML FLUSH IV FLUSH SCH ×2 (09:00→20:13)
--- NOTE | 2017-06-13 14:49 | HHI.HP ---
[facility] Service [facility] Primary Care Physician [facility] Admission Diagnosis Abdominal pain Diagnoses: (1) Abdominal pain Diagnosis: Principal Chief Complaint: Right mid-lower quadrant abdomnial pain Travel History International Travel<30 Days: No Contact w/Intl Traveler <30 Da: No Traveled to Known Affected Are: No History of Present Illness Written by Ligia Funez, acting as scribe for Dr. Ramirez on 06/13/17 at 14:43. Mr. Dacosta is a 61-year-old male patient with a known medical history of tobacco abuse, DM, hyperlipidemia, COPD and GERD who presented to the ED with complaints of right abdominal pain. Patient states that the pain started last Saturday and at the initial time of pain occurrence he was having associated nausea and diarrhea. Denies any vomiting. States that he has had diarrhea roughly 5 x per day since Saturday. Pain was severe in nature. At the time of assessment pain has improved, mild tenderness to right lower quadrant. Denies any chest pain. Appetite is good. Able to tolerate PO intake today. Review of Systems Constitutional: COMPLAINS OF: Fever, Chills Eyes: COMPLAINS OF: Diplopia Respiratory: DENIES: Cough, Shortness of breath Cardiovascular: DENIES: Chest pain Gastrointestinal: COMPLAINS OF: Abdominal pain, Diarrhea, Nausea, DENIES: Bloody stools, Constipation, Vomiting Psychiatric: DENIES: Anxiety Except as stated in HPI: all other systems reviewed are Neg Past Family Social History Past Medical History Hypertension Type 2 diabetes mellitus Hyperlipidemia. Past Surgical History Pacemaker placement Double hernia repair Cholecystectomy Reported Medications Active Neurontin (Gabapentin) 300 Mg Cap 1,200 Mg PO TID 30 Days Xarelto (Rivaroxaban) 20 Mg Tab 20 Mg PO DAILY Reported Folic Acid 0.4 Mg Tab 1 Mg PO DAILY Lisinopril 10 Mg Tab 10 Mg PO DAILY Fluoxetine (Fluoxetine HCl) 20 Mg Capsule 20 Mg PO DAILY Metoprolol Tartrate 25 Mg Tab 25 Mg PO BID Cymbalta DR (Duloxetine HCl) 30 Mg Capdr 30 Mg PO DAILY Omeprazole 20 Mg Tab 20 Mg PO DAILY Metformin (Metformin HCl) 500 Mg Tab 500 Mg PO BIDPC With meals Atorvastatin (Atorvastatin Calcium) 80 Mg Tab 80 Mg PO HS Allergies: Coded Allergies: MRI PRECAUTION (Verified Allergy, Severe, 06/12/17) oseltamivir (Verified Allergy, Unknown, 06/12/17) polyethylene glycol (Verified Allergy, Unknown, 06/12/17) polyethylene glycol 3350 (Verified Allergy, Unknown, 06/12/17) potassium chloride (Verified Allergy, Unknown, 06/12/17) sodium (Verified Allergy, Unknown, 06/12/17) sodium bicarbonate (Verified Allergy, Unknown, 06/12/17) sodium chloride (Verified Allergy, Unknown, 06/12/17) sodium sulfate (Verified Allergy, Unknown, 06/12/17) Uncoded Allergies: BARIUM (Allergy, Unknown, 05/22/17) Active Ordered Medications Current Medications Medications (Trade) Dose Ordered Sig/Jomar Route Start Time Stop Time Status Last Admin Sodium Chloride 1,000 ml @ 125 mls/hr Q8H IV 06/13/17 05:45 06/13/17 06:16 (NS Flush) 2 ml UNSCH PRN IV FLUSH 06/13/17 02:00 (NS Flush) 2 ml BID IV FLUSH 06/13/17 09:00 (Tylenol) 650 mg Q4H PRN PO 06/13/17 02:00 (Zofran Inj) 4 mg Q6H PRN IVP 06/13/17 02:00 (Narcan Inj) 0.4 mg UNSCH PRN IV PUSH 06/13/17 02:00 (Senokot) 17.2 mg Q12H PRN PO 06/13/17 02:00 (Dulcolax Supp) 10 mg DAILY PRN RECTAL 06/13/17 02:00 (D50w (Vial) Inj) 50 ml UNSCH PRN IV PUSH 06/13/17 02:00 (Glucagon Inj) 1 mg UNSCH PRN OTHER 06/13/17 02:00 (NovoLOG SUPPLEMENTAL SCALE) 1 ACHS SLIDING SCALE SQ 06/13/17 08:00 (Duoneb Neb) 1 ampule Q4HR NEB PRN NEB 06/13/17 02:00 Ceftriaxone Sodium 1000 mg/ Sodium Chloride 100 ml @ 200 mls/hr Q24H IV 06/13/17 06:00 06/13/17 06:19 Family History Patient is unaware of any significant family medical history. Social History Admits to smoking 1 ppd cigarettes per day, states he used to smoke 3 ppd for 40 years. Physical Exam Vital Signs Vital Signs Date Time Temp Pulse Resp B/P (MAP) Pulse Ox O2 Delivery O2 Flow Rate FiO2 06/13/17 11:20 98.0 90 17 132/71 (91) 98 06/13/17 11:00 92 17 96 06/13/17 10:19 90 20 123/75 (91) 97 06/13/17 10:00 92 18 97 06/13/17 09:00 98.0 92 23 117/71 (86) 96 06/13/17 07:00 113 06/13/17 06:31 86 19 116/70 (85) 06/13/17 05:41 98.0 88 17 115/72 (86) 96 Physical Exam GENERAL: This is a well-nourished, well-developed male patient, lying in bed comfortably in no apparent distress. SKIN: No rashes, ecchymoses or lesions. Warm and dry. HEAD: Atraumatic. Normocephalic. EYES: Pupils equal round and reactive. Extraocular motions intact. No scleral icterus. No injection or drainage. ENT: Nose without bleeding, purulent drainage or septal hematoma. Airway patent. NECK: Trachea midline. No JVD. Supple. CARDIOVASCULAR: Regular rate and rhythm without murmurs, gallops, or rubs. RESPIRATORY: Clear to auscultation. Breath sounds equal bilaterally. No wheezes , rales, or rhonchi. GASTROINTESTINAL: Abdomen soft, nondistended. No guarding. Active bs x 4 q. Mild tenderness to palpation to right mid-lower abdomen. MUSCULOSKELETAL: Extremities without clubbing, cyanosis, or edema. No joint tenderness, effusion, or edema noted. NEUROLOGICAL: Awake and alert. Cranial nerves II through XII intact. Motor and sensory grossly within normal limits. Five out of 5 muscle strength in all muscle groups. Normal speech. Septic Shock Reassessment Septic shock perfusion: reassessment completed Caprini VTE Risk Assessment Caprini VTE Risk Assessment: No/Low Risk (score <= 1) Caprini Risk Assessment Model Point Value = 1 Point Value = 2 Point Value = 3 Point Value = 5 Age 41-60 Minor surgery BMI > 25 kg/m2 Swollen legs Varicose veins or History of unexplained or recurrent spontaneous Oral contraceptives or hormone replacement Sepsis (< 1 month) Serious lung disease, including pneumonia (< 1 month) Abnormal pulmonary function Acute myocardial infarction Congestive heart failure (< 1 month) History of inflammatory bowel disease Medical patient at bed rest Age 61-74 Arthroscopic surgery Major open surgery (> 45 min) Laparoscopic surgery (> 45 min) Malignancy Confined to bed (> 72 hours) Immobilizing plaster cast Central venous access Age >= 75 History of VTE Family history of VTE Factor V Leiden Prothrombin [id number] Lupus anticoagulant Anticardiolipin antibodies Elevated serum homocysteine Heparin-induced thrombocytopenia Other congenital or acquired thrombophilia Stroke (< 1 month) Elective arthroplasty Hip, pelvis, or leg fracture Acute spinal cord injury (< 1 month) Prophylaxis Regimen Total Risk Factor Score Risk Level Prophylaxis Regimen 0-1 Low Early ambulation 2 Moderate Order ONE of the following: *Sequential Compression Device (SCD) *Heparin 5000 units SQ BID 3-4 Higher Order ONE of the following medications: *Heparin 5000 units SQ TID *Enoxaparin/Lovenox 40 mg SQ daily (WT < 150 kg, CrCl > 30 mL/min) *Enoxaparin/Lovenox 30 mg SQ daily (WT < 150 kg, CrCl > 10-29 mL/min) *Enoxaparin/Lovenox 30 mg SQ BID (WT < 150 kg, CrCl > 30 mL/min) AND/OR *Sequential Compression Device (SCD) 5 or more Highest Order ONE of the following medications: *Heparin 5000 units SQ TID (Preferred with Epidurals) *Enoxaparin/Lovenox 40 mg SQ daily (WT < 150 kg, CrCl > 30 mL/min) *Enoxaparin/Lovenox 30 mg SQ daily (WT < 150 kg, CrCl > 10-29 mL/min) *Enoxaparin/Lovenox 30 mg SQ BID (WT < 150 kg, CrCl > 30 mL/min) AND *Sequential Compression Device (SCD) Assessment and Plan Problem List: (1) Abdominal pain ICD Code: R10.9 - Unspecified abdominal pain Plan: Mr. Dacosta is a 61-year-old male patient with a known medical history of tobacco abuse, DM, hyperlipidemia, COPD and GERD who presented to the ED with complaints of right abdominal pain. Right mid-lower quadrant abdominal pain Abdomen CT reviewed showing no acute abnormality. Specifically, no evidence for radiopaque renal calculi or obstructive uropathy. Normal appendix. 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 Ensure hydration, continue IVF. Control pain, [place] available PRN per pain scale. Abnormal UA: Showing presence of WBC. Urine culture pending. Follow. Prophylactically on Rocephin IV. Adjust according to culture. Type 2 diabetes mellitus, chronic: Hemoglobin a1C 8.5. Monitor bgm trends. ACCU checks ACHS, sliding scale ordered, cover as needed. Chronic obstructive pulmonary disease: Supportive care. Supplemental O2 as needed. Continue Duonebs. DVT Prophylaxis: SCDs. Assessment and Plan This note was transcribed by JUAN DANIEL Mercado. I, Dr. Idalia Ramirez personally performed the history, physical exam, and medical decision making; and confirmed the accuracy of the information in the transcribed note. Authenticated by Dr. Idalia Ramirez on 06/13/17 at 14:43. Ligia Funez Jun 13, 2017 14:49 Idalia Ramirez MD Jun 13, 2017 19:57
[2017-06-13] MEDS: ACETAMINOPHEN/HYDROcodone 325 MG/5 MG TAB PO PRN (15:15)
[2017-06-14] VITALS: BP 152/78; PULSE 85; RESP 18; TEMP 97.7; O2SAT 98
[2017-06-14 04:00] VITALS: BP 158/75; PULSE 83; RESP 17; TEMP 97.5; O2SAT 97
[2017-06-14] MEDS: SODIUM CHLOR 0.9% 1000 ML INJ 1,000 ML IV SCH (05:35)
[2017-06-14] MEDS: cefTRIAXone INJ 1,000 MG in SODIUM CHLORIDE 0.9% INJ 100 ML IV SCH (05:35)
[2017-06-14 08:00] VITALS: BP 142/76; PULSE 89; RESP 16; TEMP 97.9; O2SAT 97
[2017-06-14 08:24] LABS: CALCIUM 8.5 MG/DL (8.5-10.1)
[2017-06-14 08:25] LABS: BICARBONATE 25.4 MEQ/L (21.0-32.0)
[2017-06-14 08:28] LABS: CREATININE 0.69 MG/DL (0.60-1.30)
[2017-06-14 08:30] VITALS: PULSE 88
[2017-06-14] MEDS: INSULIN ASPART SUPPLEMENTAL SCALE SQ SCH ×2 (08:34→12:04)
[2017-06-14] MEDS: ACETAMINOPHEN/HYDROcodone 325 MG/5 MG TAB PO PRN (08:35)
[2017-06-14] MEDS: SODIUM CHLORIDE 0.9% FLUSH 10 ML FLUSH IV FLUSH SCH (08:39)
--- NOTE | 2017-06-14 08:47 | HHI.PR ---
Subjective Remarks Is improving. No fever or chills with urination. Pain improved. No nausea or vomiting no diarrhea or constipation. He is eating well. Objective Vitals Vital Signs Date Time Temp Pulse Resp B/P (MAP) Pulse Ox O2 Delivery O2 Flow Rate FiO2 06/14/17 04:00 97.5 83 17 158/75 (102) 97 06/14/17 00:00 97.7 85 18 152/78 (102) 98 06/13/17 23:00 83 06/13/17 20:00 96.9 87 17 167/75 (105) 97 06/13/17 15:00 82 06/13/17 14:00 84 06/13/17 14:00 135/70 (91) 06/13/17 11:20 98.0 90 17 132/71 (91) 98 06/13/17 11:00 92 17 96 06/13/17 10:19 90 20 123/75 (91) 97 06/13/17 10:00 92 18 97 06/13/17 09:00 98.0 92 23 117/71 (86) 96 I/O 06/13/17 06/13/17 06/13/17 06/14/17 06/14/17 06/14/17 07:00 15:00 23:00 07:00 15:00 23:00 Intake Total 1400 ml 1000 ml 1000 ml Output Total 100 ml 500 ml Balance 1300 ml 500 ml 1000 ml Intake Oral 300 ml IV Total 1100 ml 1000 ml 1000 ml Output Urine Total 100 ml 500 ml # Voids 1 1 Result Diagram: 06/14/17 0735 Imaging Objective Remarks GENERAL: This is a well-nourished, well-developed male patient, lying in bed comfortably in no apparent distress. CARDIOVASCULAR: Regular rate and rhythm without murmurs, gallops, or rubs. RESPIRATORY: Clear to auscultation. Breath sounds equal bilaterally. No wheezes , rales, or rhonchi. GASTROINTESTINAL: Abdomen soft, nondistended. No guarding. Active bs x 4 q. Mild tenderness to palpation to right mid-lower abdomen. MUSCULOSKELETAL: Extremities without clubbing, cyanosis, or edema. No joint tenderness, effusion, or edema noted. NEUROLOGICAL: Awake and alert. Cranial nerves II through XII intact. Motor and sensory grossly within normal limits. Five out of 5 muscle strength in all muscle groups. Normal speech. A/P Problem List: (1) Abdominal pain ICD Code: R10.9 - Unspecified abdominal pain Assessment and Plan Mr. Dacosta is a 61-year-old male patient with a known medical history of tobacco abuse, DM, hyperlipidemia, COPD and GERD who presented to the ED with complaints of right abdominal pain. Right mid-lower quadrant abdominal pain Abdomen CT reviewed showing no acute abnormality. Specifically, no evidence for radiopaque renal calculi or obstructive uropathy. Normal appendix. 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 Ensure hydration, continue IVF. Control pain, [place] available PRN per pain scale. Patient says she has chronic back pain and pain meds were changed recently he follows at [facility] with pain management, Abnormal UA: Showing presence of WBC. Urine culture reincubated. Follow. Prophylactically on Rocephin IV. Adjust according to culture. Asymptomatic , Switch to cipro PO, to follow up as OP with [facility] PCP and consultants as OP at [facility] Type 2 diabetes mellitus, chronic: Hemoglobin a1C 8.5. Monitor bgm trends. ACCU checks ACHS, sliding scale ordered, cover as needed. Chronic obstructive pulmonary disease: Supportive care. Supplemental O2 as needed. Continue Duonebs. DVT Prophylaxis: SCDs. Discussed with the patient, nurse CHRISTIE today. Discharge Planning Discharge home in stable condition to follow-up with PCP and consultants as outpatient Medications per medication reconciliation Activity ad ruben. as tolerated Diet healthy heart diet Idalia Ramirez MD Jun 14, 2017 08:47
[2017-06-14] MEDS ORDERED: ENALAPRILAT 2.5 MG/2 ML VIAL IV PUSH PRN (09:00)
[2017-06-14 09:53] LABS: AUTOMATED NEUTROPHIL # 4.8 TH/MM3 (1.8-7.7); BASOPHIL % 0.1 % (0.0-2.0); EOSINOPHIL # 0.2 TH/MM3 (0-0.4); EOSINOPHIL % 2.8 % (0.0-4.0); HEMATOCRIT 39.3 % (39.0-51.0); LYMPH % 19.1 % (9.0-44.0); LYMPHOCYTE # 1.3 TH/MM3 (1.0-4.8); MEAN CELL VOLUME 89.8 FL (80.0-100.0); MEAN CORPUSCULAR HEMOGLOBIN 29.7 PG (27.0-34.0); MEAN PLATELET VOLUME 7.4 FL (7.0-11.0); MONO % 6.8 % (0.0-8.0); MONOCYTE # 0.5 TH/MM3 (0-0.9); NEUT % 71.2 % (16.0-70.0); PLATELET COUNT 270 TH/MM3 (150-450); RED BLOOD COUNT 4.37 MIL/MM3 (4.50-5.90); RED CELL DISTRIBUTION WIDTH 15.2 % (11.6-17.2); WHITE BLOOD COUNT 6.8 TH/MM3 (4.0-11.0)
[2017-06-14 12:00] VITALS: BP 148/71; PULSE 87; RESP 16; TEMP 98.1; O2SAT 98
[2017-06-14] MEDS ORDERED: CIPR250T2 PO (13:31)
[2017-06-14] MEDS ORDERED: NORC5TAB PO (13:31)
--- NOTE | 2017-06-14 13:32 | HHI.DS ---
Discharge Summary Admission Date Jun 13, 2017 at 05:40 Admitting Diagnosis Abdominal pain (1) Abdominal pain ICD Code: R10.9 - Unspecified abdominal pain Brief History - From Admission Written by Ligia Funez, acting as scribe for Dr. Ramirez on 06/13/17 at 14:43. Mr. Dacosta is a 61-year-old male patient with a known medical history of tobacco abuse, DM, hyperlipidemia, COPD and GERD who presented to the ED with complaints of right abdominal pain. Patient states that the pain started last Saturday and at the initial time of pain occurrence he was having associated nausea and diarrhea. Denies any vomiting. States that he has had diarrhea roughly 5 x per day since Saturday. Pain was severe in nature. At the time of assessment pain has improved, mild tenderness to right lower quadrant. Denies any chest pain. Appetite is good. Able to tolerate PO intake today. CBC/BMP: 06/14/17 0735 06/14/17 0735 Significant Findings Laboratory Tests Test 06/14/17 07:35 Red Blood Count 4.37 MIL/MM3 (4.50-5.90) Neutrophils (%) (Auto) 71.2 % (16.0-70.0) Blood Urea Nitrogen 6 MG/DL (7-18) Random Glucose 138 MG/DL (74-106) Chloride Level 108 MEQ/L (98-107) PE at Discharge GENERAL: This is a well-nourished, well-developed male patient, lying in bed comfortably in no apparent distress. CARDIOVASCULAR: Regular rate and rhythm without murmurs, gallops, or rubs. RESPIRATORY: Clear to auscultation. Breath sounds equal bilaterally. No wheezes , rales, or rhonchi. GASTROINTESTINAL: Abdomen soft, nondistended. No guarding. Active bs x 4 q. Mild tenderness to palpation to right mid-lower abdomen. MUSCULOSKELETAL: Extremities without clubbing, cyanosis, or edema. No joint tenderness, effusion, or edema noted. NEUROLOGICAL: Awake and alert. Cranial nerves II through XII intact. Motor and sensory grossly within normal limits. Five out of 5 muscle strength in all muscle groups. Normal speech. Pt Condition on Discharge: Stable Discharge Disposition: Discharge Home Discharge Instructions DIET: Follow Instructions for: Heart Healthy Diet, Diabetic Diet Activities you can perform: Regular-No Restrictions Idalia Ramirez MD Jun 14, 2017 13:32
[2017-06-14] MEDS ORDERED: MORPHINE SULFATE 2 MG/ML INJ IV PUSH ONE (13:45)
== END 2017-06-14 15:46 | disposition home or self-care (01) ==
LOC: PHEDDLT 05:30 → PHICU 05:40 → PH3B 16:38
PROVIDERS: ADMIT Hospitalist; ATTEND Hospitalist
DX: R10.9 Unspecified abdominal pain (principal); R82.99 Other abnormal findings in urine; M54.9 Dorsalgia, unspecified; G89.29 Other chronic pain; E78.5 Hyperlipidemia, unspecified; E11.9 Type 2 diabetes mellitus without complications; I10 Essential (primary) hypertension; J44.9 Chronic obstructive pulmonary disease, unspecified; K21.9 Gastro-esophageal reflux disease without esophagitis; N28.1 Cyst of kidney, acquired; K76.0 Fatty (change of) liver, not elsewhere classified; F17.210 Nicotine dependence, cigarettes, uncomplicated; Z95.0 Presence of cardiac pacemaker
CPT/HCPCS: 74176; 80048; 80053; 81001; 82948; 83605; 83690; 83880; 85025; 87086; 93005; 96361; 96365; 96375; 96376; 99285; G0378; J0696; J1170; J1885; J2270; J2405; J2543; J7030